=== PATIENT | female | born 1945 | race Caucasian/White ===

== ENCOUNTER 2023-10-24 18:35 | Inpatient (IN) | payer OTHER, SELFPAY ==
[2023-10-24] VITALS (7 sets, daily range): BP systolic 133–225; BP diastolic 63–139; BMI 25.4
[2023-10-24 15:51] LABS: ALT (SGPT) 14 U/L (0-35); AST (SGOT) 28 U/L (14-36); Albumin 4.6 g/dl (3.5-5.0); Alkaline Phosphatase 144 U/L (38-126); Blood Urea Nitrogen 15 mg/dl (7-17); Calcium 9.6 mg/dl (8.4-10.2); Carbon Dioxide 20 mmol/L (22-30); Chloride 91 mmol/L (98-107); Glucose 111 mg/dl (70-99); Potassium 3.9 mmol/L (3.5-5.1); Sodium 123 mmol/L (135-145); Total Bilirubin 1.1 mg/dl (0.2-1.3); Total Protein 7.5 g/dl (6.3-8.2); eGFR > 60.00
[2023-10-24 15:53] LABS: % Basophils 0.3 % (0-2); % Eosinophils 0.4 % (0-6); % Immature Granulocytes 0.5 % (0-0.5); % Lymphocytes 5.2 % (20.5-51.1); % Monocytes 9.5 % (1.7-9.3); % Neutrophils 84.1 % (42.2-75.2); Absolute Basophils 0.1 10^3/uL (0-0.2); Absolute Eosinophils 0.1 10^3/uL (0-0.7); Absolute Immature Granulocytes 0.1 10^3/uL (0-0.05); Absolute Lymphocytes 0.8 10^3/uL (1.2-3.4); Absolute Monocytes 1.4 10^3/uL (0.1-0.6); Absolute Neutrophils 12.4 10^3/uL (1.4-6.5); Hematocrit 32.9 % (37.0-47.0); Hemoglobin 11.8 g/dL (12.0-16.0); Mean Corp Hgb Conc. 35.9 g/dL (33.0-37.0); Mean Corpuscular Volume 94.8 fL (81.0-99.0); Mean Platelet Volume 9.2 fL (7.4-10.4); Nucleated Red Blood Cells % 0 %; Platelet Count 293 10^3/uL (130-400); Red Blood Cell Count 3.47 10^6/uL (4.20-5.40); Red Cell Dist. Width 12.4 % (11.5-14.5); White Blood Cell Count 14.7 10^3/uL (4.8-10.8)
[2023-10-24 16:01] LABS: Troponin I 0.016 ng/ml
--- NOTE | 2023-10-24 16:39 | ED.GENMED ---
History of Present Illness
General
Chief Complaint: Change in Mental Status
Source: patient
Exam Limitations: none
Time Seen by Provider: 10/24/23 16:08
Travel History
Have you had any contact with someone who has COVID-19?: No
Do you have any symptoms of coronavirus? Fever > 100 degrees, chills, cough, shortness of breath, sore throat, loss of taste or smell, muscle aches, or headache?: No
History of Present Illness
History of Present Illness:
77-year-old female with history of hypertension and migraines presents with onset of confusion earlier today. states has been happening intermittently over the past month. She fell about 3 weeks ago as she tripped over her dog. She landed
on her backside. She did not hit her head. She been having trouble ambulating secondary to pain in the buttock. Today she was not making any sense. No reported fever chest pain shortness of breath cough or urinary symptoms. She notes no
excessive thirst. No other complaints at this time
Phy Exam
Physical Exam
Physical Exam:
General: WEll appearing female NAD
HEENT: Normocephalic atraumatic no evidence of trauma pupils equal round reactive to light
Heart: Regular rate and rhythm no murmurs
Lungs: Clear no wheeze or rales
Neurologic: Alert and oriented x 3 no facial asymmetry aphasia slurred or drift.
Abdomen is soft nontender nondistended no guarding or rebound
Musculoskeletal exam: Slightly tender to the left posterior buttock. No deformities to the extremities
Course
Orders/Labs/Results
Orders:
Orders
10/24/23 15:22
Electrocardiogram (*1) Urgent
Reason for Study: Hypertension, Benign
EKG- Treatment ONCE
10/24/23 15:27
CMP [Comprehensive Metabolic Panel] Urgent
Complete Blood Count/With Diff Urgent
Serum Osmolality Urgent
Comment: ADD
Troponin I Urgent
10/24/23 15:[address] [CT Head W/o Iv Contrast] Urgent
Comment:
Reason For Exam: confusion
10/24/23 16:23
Add On- LAB Urgent
Tests Added?: serum osmolality
CR Pelvis - 1 Or 2 Views Urgent
Comment:
Reason For Exam: fall, left posterior pelvic pain
10/24/23 17:13
Osmolality, Random Urine Urgent
Date Specimen was Collected: 10/24/23
Time Specimen was Collected: 17:10
Urinalysis Reflex To Culture Urgent
Date Specimen was Collected: 10/24/23
Time Specimen was Collected: 17:10
Urine Microscopic Reflex Cult Urgent
Urine Sodium Urgent
Date Specimen was Collected: 10/24/23
Time Specimen was Collected: 17:10
Urine Culture Urgent
ANTHONY Source: U
Specimen Description:
Date Specimen was Collected: 10/24/23
Time Specimen was Collected: 17:10
Abnormal Lab Results
10/24/23 10/24/23
15:27 17:13
WBC 14.7 H 10^3/uL
(4.8-10.8)
RBC 3.47 L 10^6/uL
(4.20-5.40)
Hgb 11.8 L g/dL
(12.0-16.0)
Hct 32.9 L %
(37.0-47.0)
MCH 34.0 H pg
(27.0-31.0)
Abs Immat Gran (auto) 0.1 H 10^3/uL
(0-0.05)
Absolute Neuts (auto) 12.4 H 10^3/uL
(1.4-6.5)
Absolute Lymphs (auto) 0.8 L 10^3/uL
(1.2-3.4)
Absolute Monos (auto) 1.4 H 10^3/uL
(0.1-0.6)
Neutrophils % 84.1 H %
(42.2-75.2)
Lymphocytes % 5.2 L %
(20.5-51.1)
Monocytes % 9.5 H %
(1.7-9.3)
Sodium 123 L mmol/L
(135-145)
Chloride 91 L mmol/L
(98-107)
Carbon Dioxide 20 L mmol/L
(22-30)
Glucose 111 H mg/dl
(70-99)
Serum Osmolality 256 L mOsm/kg
(275-300)
Alkaline Phosphatase 144 H U/L
(38-126)
Urine Ketones 3+ A
(Negative)
Ur Occult Blood Reflex Trace A
(Negative)
Leukocyte Esterase Rfl 1+ A
(Negative)
10/24/23 15:27
10/24/23 15:27
Vital Signs
Initial and Last Documented VS:
Initial Vital Signs
Temp Pulse Resp BP Pulse Ox
98.3 F 102 18 225/139 97
10/24/23 15:14 10/24/23 15:14 10/24/23 15:14 10/24/23 15:14 10/24/23 15:14
Last Documented Vital Signs
Temp Pulse Resp BP Pulse Ox
98.3 F 106 18 205/87 98
10/24/23 15:14 10/24/23 17:12 10/24/23 17:12 10/24/23 17:12 10/24/23 17:12
MDM/Problems Addressed
Differential Diagnosis Includes:
Confusion and weakness. Consider TIA versus CVA versus trauma related versus electrolyte abnormality or infectious source
CT head pending. Will check labs. Urinalysis pending.
*Critical Care Note
Total Time (30-74mins, 75-104mins- exclusive of procedures): Not Applicable
Update Note
Update Note:
CT of the head was negative. X-ray of the pelvis shows inferior pubic rami fracture as well as an acetabular fracture. This is from an injury she sustained 3 to 4 weeks ago.. She is hyponatremic with a sodium of 123. Osmolality in the urine and
sodium pending. Discussed findings with hospitalist as well as nephrology. Will admit to hospital
ED Attending Note
-
Portions of this chart may have been created with voice recognition software.� Occasional wrong word or��sound alike� substitutions may have occurred due to the inherent limitations of voice recognition software.
Discharge Plan
Departure
Patient Disposition: Admit
Date of Disposition: 10/24/23
Time of Disposition: 17:34
Admit to: Telemetry
Presentation/result/management discussed w/ accepting MD/DO: Hospitalist
Discharge Problem:
Acute hyponatremia, Fracture of inferior pubic ramus
Discharge Date and Time
Print Language: MONGOLIAN
[2023-10-24 17:10] LABS: Osmolality Serum 256 mOsm/kg (275-300)
[2023-10-24 17:25] LABS: Urine Albumin Negative (Neg - Trace); Urine Bilirubin Negative (Negative); Urine Character Clear (Clear); Urine Color Yellow; Urine Glucose Negative (Negative); Urine Ketone 3+ (Negative); Urine Leukocyte 1+ (Negative); Urine Nitrite Negative (Negative); Urine Occult Blood Trace (Negative); Urine Specific Gravity 1.015 (<1.030); Urine Urobilinogen Negative (Neg - 1+)
[2023-10-24 17:28] LABS: Osmolality Urine 321 mOsm/kg (300-900)
[2023-10-24 17:39] LABS: Urine Red Blood Cell 0-2 /HPF (0-2)
[2023-10-24 17:48] LABS: Urine Sodium 81 mmol/L (30-90)
--- NOTE | 2023-10-24 17:49 | HPS.HSE ---
Family Physician
-
Family Physician: Sara Haney
Chief Complaint
-
Confusion for few hours
History of Present Illness
77 years old female came from home. History taken from the patient and her family at bedside. Patient reported that she was brought into the hospital because of her 's request. was at the gym this morning and when he came back he
felt patient was confused, did not recognize the time or mobile/TV remote. She did not have fever or chills. He felt that she looked confused to him and brought her to the emergency room.
Currently, feels patient is back to her baseline. Patient denies any shortness of breath or headache. Patient reports that she did not recall that episode of confusion. In the emergency room, her white count was 14.7.
Blood pressure on arrival 225/139. Currently in the room her blood pressure 189/91. No treatment was given in the ER. Patient reported uncontrolled blood pressure at home. Patient reported that she was taking
Ibuprofen for recent left inferior pubic ramus fracture around 3 weeks ago.
Medical History
Past Medical History
Past Medical History: Reports Other (Hypertension)
Past Surgical History: Reports Other (No recent major surgery)
Social History
Tobacco: Non-smoker
Alcohol: Daily (Glass of wine)
Drug: None
Personal:
Living: With Family
Employment: Retired
Family History
Family History: Not pertinent
Allergies / Home Medications
Allergies reflects when Allergies were last updated in [employer].
Home Medications with original date entered in [employer]
Allergy/Medication List:
Allergies
Allergy/AdvReac Type Severity Reaction Status Date / Time
No Known Allergies Allergy Unverified 10/24/23 15:21
Home Medications
ibuprofen 200 mg tablet 800 - 1,200 mg PO TID PRN mild pain 10/24/23
metoprolol succinate 100 mg tablet,extended release 24 hr 100 mg PO QPM 10/24/23
Review of Systems
-
History Source: Patient
A 12 point ROS was completed and negative except as noted: Yes
Constitutional: Denies Fever or Chills
EENT: Denies Sore Throat
Respiratory: Denies Cough or Trouble Breathing
Cardiac: Denies Chest Pain or Palpitations
Abdomen/GI: Denies Abdominal Pain
: Denies Dysuria
Musculoskeletal: Reports Joint Pain (Left pelvic pain)
Skin: Denies Itching
Neurological: Denies Numbness
Endocrine: Denies Temp Intolerance
Hematologic/Lymphatic: Denies Bruising
Psych: Denies Panic Disorder
Physical Exam
Vital Signs
Vital Signs
Temp Pulse Resp BP Pulse Ox
98.3 F 106 18 205/87 98
10/24/23 15:14 10/24/23 17:12 10/24/23 17:12 10/24/23 17:12 10/24/23 17:12
Physical Exam
General: No Apparent Distress and Comfortable
HEENT: Moist mucous membranes and Atraumatic
Respiratory: Clear
Cardiac: S1/S2, Tachycardia and Murmur
GI: Soft, Non Tender and Non Distended
Rectal: No Maroon Stools
Genito-urinary: No costovertebral tender
Musculoskeletal: No Clubbing, No Cyanosis and No Edema
Skin: Warm and Dry; No Jaundice
Neuro: AO x 3 and Nonfocal/grossly intact; No Slurred Speech, Facial Droop or Tremors
Psych: Calm and Intact Judgment/Insight
Laboratory Results
-
10/24/23 15:27
10/24/23 15:27
Laboratory Results
Total Bilirubin 1.1 mg/dl (0.2-1.3) 10/24/23 15:27
AST 28 U/L (14-36) 10/24/23 15:27
ALT 14 U/L (0-35) 10/24/23 15:27
Alkaline Phosphatase 144 U/L (38-126) H 10/24/23 15:27
Troponin I 0.016 ng/ml 10/24/23 15:27
Impression/Plan
-
IMPRESSION:
77 years old female who presented with history of confusion that happened earlier today. Patient was back to her baseline upon arrival to the emergency room.
#Change in mental status
Differential diagnoses include TIA/hypertensive encephalopathy/metabolic encephalopathy
Admit the patient to the hospital.
Monitor the patient telemetry
Correct sodium slowly
Control blood pressure
CAT scan of the head did not show acute finding
Nonfocal on neurologic examination, and she seems back to baseline. Discussed option to do MRI brain to rule out stroke but she declined
Neurochecks
PT/OT
# Hyponatremia. Admission sodium 123
No history of hyponatremia
Could be pain induced with excess ADH
Check serum and urine osmolality. Check urine sodium.
Continue with regular diet with fluid restriction
Monitor sodium
Appreciate nephrology input
# Hypertensive urgency
History of primary hypertension and reportedly not well-controlled at home
We will give the patient started IV hydralazine
Continue with oral Toprol
Will start the patient on low-dose nifedipine and monitor blood pressure
# Heart murmur
Will check echocardiogram. Patient is aware of it but has not had echocardiogram done
No history of coronary artery disease or cardiac arrhythmias
No chest pain
Monitor the patient on telemetry
# Leukocytosis. Could be reactive. No fever. No cough.
No GI symptoms
Check urine test
Monitor temperature curve
# Recent left pubic rami fracture.
Pain control with Tylenol [id number].
PT/OT
Total time spent to see the patient, examine the patient, review data and lab results, discuss treatment plan with patient, nursing staff, ER doctor around 75 minutes
[2023-10-24] MEDS: TOPROL XL PO (19:25)
[2023-10-24] MEDS: APRESOLINE IV (19:25)
--- NOTE | 2023-10-24 19:40 | PTCARENOTE ---
Patient arrived from ED via stretcher, ambulated to bed with standby assist. Alert and oriented at this time, appears to be forgetful. Patient initiated on customer support specialist #2. Bed alarm placed and maintained. Patient ambulated to bathroom with
assist of one person, stating 'I am so nervous, I can't stop going to the bathroom.' Call webb is within reach, patient verbalizes understanding on use of call webb. Will continue to monitor.
[2023-10-24] MEDS: HEPARIN 5000 UNITS SC (20:12)
[2023-10-24] MEDS: TYLENOL 1000 MG PO (20:12)
[2023-10-24] MEDS: TOPROL XL 100 MG PO (20:12)
[2023-10-24] MEDS: APRESOLINE 10 MG IV (20:13)
[2023-10-24] MEDS: FLUSH (NSS) 2 FLUSH IV (20:14)
[2023-10-24 21:34] LABS: Uric Acid 2.4 mg/dl (2.5-6.2)
[2023-10-24] MEDS: LASIX 20 MG PO (22:28)
[2023-10-25] VITALS (8 sets, daily range): BP systolic 137–157; BP diastolic 71–85; PULSE 80–81; O2SAT 95
[2023-10-25 08:17] LABS: Blood Urea Nitrogen 14 mg/dl (7-17); Calcium 8.9 mg/dl (8.4-10.2); Carbon Dioxide 25 mmol/L (22-30); Chloride 93 mmol/L (98-107); Estimated Creatinine Clearance 44 ml/min; Glucose 94 mg/dl (70-99); Potassium 3.6 mmol/L (3.5-5.1); Sodium 122 mmol/L (135-145); eGFR > 60.00
[2023-10-25] MEDS: PROCARDIA XL (EXTENDED RELEASE) 30 MG PO ×2 (08:25→20:10)
[2023-10-25] MEDS: TYLENOL 1000 MG PO ×3 (08:26→22:19)
[2023-10-25] MEDS: HEPARIN 5000 UNITS SC ×2 (08:26→20:10)
[2023-10-25] MEDS: TOPROL XL 100 MG PO (08:26)
--- NOTE | 2023-10-25 09:56 | W.PN.HOSP.TC ---
Today's Communication/Plan
-
likely dc in am
Assessment / Plan
Assessment / Plan
Physical Exam
General: No Apparent Distress and Comfortable
HEENT: Moist mucous membranes and Atraumatic
Respiratory: Clear
Cardiac: S1/S2, Tachycardia and Murmur
GI: Soft, Non Tender and Non Distended
Rectal: No Maroon Stools
Genito-urinary: No costovertebral tender
Musculoskeletal: No Clubbing, No Cyanosis and No Edema
Skin: Warm and Dry; No Jaundice
Neuro: AO x 3 and Nonfocal/grossly intact; No Slurred Speech, Facial Droop or Tremors
Psych: Calm and Intact Judgment/Insight
77 years old female who presented with history of confusion that happened earlier today. Patient was back to her baseline upon arrival to the emergency room.
#Change in mental status
Im leaning towards HTN encephalopathy due to good cognitive improvement by controlling her BP. I can not rule out stroke as she declined MRI but having no residual deficits and getting back to baseline ( even per family) make stroke less likely.
Also metabolic encephalopathy less likely due to persistent hyponatremia but good cognitive improvement.
No cardiac arrhythmias on telemetry
Order PT/OT
CAT scan of the head did not show acute finding
c/w aspirin as secondary prevention. Check Lipid panel in am.
# Hyponatremia. Admission sodium 123
No history of hyponatremia
Likely pain induced with excess ADH
Low serum and normal urine osmolality. Urine sodium at 81.
Continue with regular diet with fluid restriction, add sodium chloride tablets.
Monitor sodium
d/w Dr Alamo, low dose Lasix did not help much, will do small amount of 3% NS.
Appreciate nephrology input
# Hypertensive urgency, resolved.
History of primary hypertension and reportedly not well-controlled at home
PRN IV hydralazine caused palpitation.
Continue with oral Toprol, add low dose Nifedipine.
Monitor blood pressure
# Heart murmur
Will check echocardiogram. Patient is aware of it but has not had echocardiogram done
No history of coronary artery disease or cardiac arrhythmias
No chest pain
Monitor the patient on telemetry
# Leukocytosis. Could be reactive. No fever. No cough.
No GI symptoms
urine test is clear , positive leukocyte Estrace. Urine culture is pending
Monitor temperature curve
# Recent left pubic rami fracture.
Pain control with Tylenol [id number].
PT/OT
Total time spent to see the patient, examine the patient, review data and lab results, discuss treatment plan with patient, her family, nursing staff, supervisor costuming around 67 minutes
Anticipated Discharge: 24 - 48 hours
Subjective/Interval History
-
Date of Service: October 25, 2023
She feels better today, no complaints
slept well last night
Night team: no events
Objective Data
-
Labs:
Laboratory Results
10/25/23
07:04
Sodium 122 L
Potassium 3.6
Chloride 93 L
Carbon Dioxide 25
BUN 14
Creatinine 0.7
Glucose 94
Calcium 8.9
Vital Signs:
Vital Signs
Temp Pulse Resp BP Pulse Ox
99.4 F 77 16 147/79 95
10/25/23 08:00 10/25/23 08:26 10/25/23 08:00 10/25/23 08:26 10/25/23 08:00
I&O
10/24/23 10/25/23 10/26/23
06:59 06:59 06:59
Intake Total 240 / 240
Balance 240 / 240
--- NOTE | 2023-10-25 10:38 | W.CON.NEPH ---
Consultation
-
Date/Time Consultation Requested: 10/24/23 192
Date/Time Consultation Performed: 10/25/23 1100
Requesting Provider: Cricket Hammond
Performing Provider: Estella Hampton
Reason for Consultation: Hyponatremia
Medical History
-
Chief Complaint: AMS
History of Present Illness:
77 years old female with H/o HTN on BB, baseline white coat HTN, who fell around Easter time at daughters house while taking care of dogs and since then has back pain and was taking Advil regularly. She was still able to walk and did not seek
medical attention. Yesterday brought her into the hospital because of AMS. Reportedly she was confused, did not recognize the time or mobile/TV remote. No reported fever, cough, dysuria. Offers no cp or sob or n/v. No diarrhea. MS improved
in ER and sodium noted at 123. NO prior h/o hyponatremia. She reports was eating well. No excess free water intake. She denies any dizziness. Blood pressure on arrival 225/139, pt reports very anxious last night. Sfter she got her BB BP improved.
She also received low dose of lasix but sodium remains low at 122. Her pelvic X ray shows pelvic bone fracture.
Past Medical History
HTN
Vit D def
HLD
Past Surgical History: None
Social History
Tobacco: Non-Smoker
Alcohol: Daily (glass of wine few times weekly)
Personal:
Living: With Family
Family History
Father dies at 73 from fall
MOther dies at 73 with lung ca
Brother with [place]
Allergies / Home Medications
Allergy/AdvReac Type Severity Reaction Status Date / Time
No Known Allergies Allergy Unverified 10/24/23 15:21
�Medication �Instructions �Recorded �Confirmed �Type
ibuprofen 200 mg tablet 800 - 1,200 mg PO TID PRN mild pain 10/24/23 10/24/23 History
metoprolol succinate 100 mg 100 mg PO QPM 04/29/24 04/29/24 History
tablet,extended release 24 hr
Review of Systems
-
All complete 12 point ROS haven been inquired and found negative other than stated in HPI
Physical Exam
Vital Signs
Vital Signs
Temp Pulse Resp BP Pulse Ox
99.4 F 77 16 147/79 95
10/25/23 08:00 10/25/23 08:26 10/25/23 08:00 10/25/23 08:26 10/25/23 08:00
Lab Results
WBC 14.7 10^3/uL (4.8-10.8) H 10/24/23 15:27
RBC 3.47 10^6/uL (4.20-5.40) L 10/24/23 15:27
Hgb 11.8 g/dL (12.0-16.0) L 10/24/23 15:27
Hct 32.9 % (37.0-47.0) L 10/24/23 15:27
Plt Count 293 10^3/uL (130-400) 10/24/23 15:27
Sodium 122 mmol/L (135-145) L 10/25/23 07:04
Potassium 3.6 mmol/L (3.5-5.1) 10/25/23 07:04
Chloride 93 mmol/L (98-107) L 10/25/23 07:04
Carbon Dioxide 25 mmol/L (22-30) 10/25/23 07:04
BUN 14 mg/dl (7-17) 10/25/23 07:04
Creatinine 0.7 mg/dL (0.6-1.0) 10/25/23 07:04
eGFR > 60.00 10/25/23 07:04
Glucose 94 mg/dl (70-99) 10/25/23 07:04
Calcium 8.9 mg/dl (8.4-10.2) 10/25/23 07:04
Albumin 4.6 g/dl (3.5-5.0) 10/24/23 15:27
U osmo 321, U na 81
UA ketones 3+,occt bld trace, lecu 1+, WBC 6-10
pelvic Xray:
FINDINGS/IMPRESSION:
Fracture of the left inferior pubic ramus without significant displacement. Possible subtle nondisplaced fractures of the medial left acetabular wall and left sacral ala, although less well seen by radiograph.
No dislocation. Chronic degenerative changes of the lower lumbar spine.
CT head:
IMPRESSION:
No acute intracranial abnormality. Chronic senescent changes.
Physical Exam
General: Awake, Alert, Oriented, AOx3, No Distress and Nontoxic
HEENT: EOMI, Anicteric and No JVD
Respiratory: Clear, Normal Excursion and Nonlabored Respirations
Cardiac: S1/S2 and Regular Rate/Rhythm
Abdomen: Soft, Nontender and Nondistended
Musculoskeletal: No Cyanosis and Edema (trace)
Skin: No Rash
Neuro: Nonfocal/Grossly Intact
Psych: Mood/afflect pleasant, Insight/judgement good and Appropriate
Data Reviewed
-
Radiology: Report Reviewed by me and Discussed with Patient
Labs: Labs Reviewed by me and Discussed with Patient
Assessment/Plan
-
IMP:
Change in mental status
Hyponatremia
Hypertensive urgency
History of primary hypertension along with white coat HTN
Heart murmur
Leukocytosis
Recent left pubic rami fracture
PLan:
A/w AMS, na found at 123
U osmo high at 321 with high ADH state likely from pain(pelvic fx)+NSAIDs use
Since she had HTN Urgency 3% saline not ordered last night and instead received lasix
check TSH, q4h check sodiums, FR 40 ounces/day
will start 3% saline now as her BP improved
try samsca tomorrow if needed
high BP could be from severe anxiety- now better with BB and procardia
may benefit from lasix at d/c, mild edema check BNP
d/w pt and and primary
[2023-10-25] MEDS: SODIUM CHLORIDE 3% 250 IV (11:34)
[2023-10-25 11:46] LABS: Sodium 124 mmol/L (135-145)
[2023-10-25 14:08] LABS: NT-proBNP 2830 pg/ml
[2023-10-25 15:43] LABS: Sodium 127 mmol/L (135-145)
[2023-10-25 19:16] LABS: Sodium 128 mmol/L (135-145)
[2023-10-25 23:40] LABS: Sodium 127 mmol/L (135-145)
[2023-10-26 03:50] VITALS: BP 157/78
[2023-10-26 06:11] VITALS: BMI 24.8
[2023-10-26 07:13] LABS: Blood Urea Nitrogen 11 mg/dl (7-17); Calcium 9.2 mg/dl (8.4-10.2); Carbon Dioxide 27 mmol/L (22-30); Chloride 98 mmol/L (98-107); Estimated Creatinine Clearance 50 ml/min; Glucose 92 mg/dl (70-99); HDL Cholesterol 86 mg/dl; LDL Cholesterol, Calculated 89 mg/dl; Potassium 3.4 mmol/L (3.5-5.1); Sodium 130 mmol/L (135-145); Total Cholesterol 196 mg/dl (50-199); Triglyceride 107 mg/dl (10-149); Very Low Density Lipoprotein 21 mg/dl (0-30); eGFR > 60.00
[2023-10-26 07:30] VITALS: BP 152/86
[2023-10-26 07:36] LABS: Hemoglobin 11.2 g/dL (12.0-16.0); Mean Corpuscular Volume 97.3 fL (81.0-99.0); Mean Platelet Volume 9.3 fL (7.4-10.4); Platelet Count 301 10^3/uL (130-400); Red Blood Cell Count 3.29 10^6/uL (4.20-5.40); Red Cell Dist. Width 12.9 % (11.5-14.5); White Blood Cell Count 7.8 10^3/uL (4.8-10.8)
[2023-10-26] MEDS: TYLENOL 1000 MG PO ×3 (07:59→21:09)
[2023-10-26] MEDS: TOPROL XL 100 MG PO (07:59)
[2023-10-26] MEDS: HEPARIN 5000 UNITS SC ×2 (07:59→20:01)
[2023-10-26] MEDS: PROCARDIA XL (EXTENDED RELEASE) 30 MG PO ×2 (08:00→20:01)
--- NOTE | 2023-10-26 08:21 | W.PN.HOSP.TC ---
Addendum entered and electronically signed by Cricket Colby MD 10/26/23 11:37:
Addendum
Dr Ac saw pt later this morning and wanted her to stay another night to continue monitoring sodium level
will cancel dc
Total time spent to see the patient, examine the patient, review data and lab results, discuss treatment plan with patient, nephrology, nursing staff around 75 minutes
Original Note:
Today's Communication/Plan
-
DC
Assessment / Plan
Assessment / Plan
Physical Exam
General: No Apparent Distress and Comfortable
HEENT: Moist mucous membranes and Atraumatic
Respiratory: Clear
Cardiac: S1/S2, Tachycardia and Murmur
GI: Soft, Non Tender and Non Distended
Rectal: No Maroon Stools
Genito-urinary: No costovertebral tender
Musculoskeletal: No Clubbing, No Cyanosis and No Edema
Skin: Warm and Dry; No Jaundice
Neuro: AO x 3 and Nonfocal/grossly intact; No Slurred Speech, Facial Droop or Tremors
Psych: Calm and Intact Judgment/Insight
77 years old female who presented with history of confusion that happened earlier today. Patient was back to her baseline upon arrival to the emergency room.
#Change in mental status
Im leaning towards HTN encephalopathy due to good cognitive improvement by controlling her BP. I can not rule out stroke as she declined MRI but having no residual deficits and getting back to baseline ( even per family) make stroke less likely.
Also metabolic encephalopathy less likely due to persistent hyponatremia but good cognitive improvement.
No cardiac arrhythmias on telemetry
Order PT/OT, recommended outpatient PT
CAT scan of the head did not show acute finding
c/w aspirin as secondary prevention. Checked Lipid panel this morning that showed LDL 89. Triglyceride 107, total cholesterol 196.
Patient will follow-up with her primary care doctor
# Hyponatremia. SAIDH
Admission sodium 123. Sodium 1 slowly up to 130
Likely ADH excess in setting of pain issues
No history of hyponatremia
BMP as an outpatient
Low serum and normal urine osmolality. Urine sodium at 81.
Continue with regular diet with fluid restriction, status post small amount of 3% NS.
Appreciate nephrology input
Hypokalemia, replace
#
# Hypertensive urgency, resolved.
History of primary hypertension and reportedly not well-controlled at home
PRN IV hydralazine caused palpitation.
Continue with oral Toprol, started on nifedipine. Patient seems to tolerate her new regimen well
Monitor blood pressure
# Heart murmur echocardiogram showed left ventricular ejection fraction of 70 to 75%. Stage II diastolic dysfunction. Moderate mitral regurgitation. Mild aortic stenosis. Mild pulmonary hypertension.
No history of coronary artery disease or cardiac arrhythmias
No chest pain
No hypoxia or shortness of breath
For outpatient cardiology follow-up
# Leukocytosis. Could be reactive. No fever. No cough.
Resolved. No GI symptoms
urine test is clear , positive leukocyte Estrace. Urine culture is negative
Monitor temperature curve
# Recent subacute left pubic rami fracture.
Pain control with Tylenol [id number].
PT/OT, outpatient PT
Total discharge time spent to see the patient, examine the patient, review data and lab results, discuss discharge plan with patient, her family, nursing staff, javascript ui developer around 67 minutes
Anticipated Discharge: Today
Subjective/Interval History
-
Date of Service: October 26, 2023
Objective Data
-
Labs:
Laboratory Results
10/25/23 10/26/23
23:00 06:34
WBC 7.8
Hgb 11.2 L
Hct 32.0 L
Plt Count 301
Sodium 127 L 130 L
Potassium 3.4 L
Chloride 98
Carbon Dioxide 27
BUN 11
Creatinine 0.5 L
Glucose 92
Calcium 9.2
Vital Signs:
Vital Signs
Temp Pulse Resp BP Pulse Ox
98.0 F 90 18 152/86 97
10/26/23 07:30 10/26/23 08:00 10/26/23 07:30 10/26/23 08:00 10/26/23 07:30
I&O
10/25/23 10/26/23 10/27/23
06:59 06:59 06:59
Intake Total 240 / 240 720 / 720
Balance 240 / 240 720 / 720
--- NOTE | 2023-10-26 10:07 | PN.CDI ---
CDI
- -
CDI:
Physician Documentation Request
Admit Date: 10/24/23 18:35
Dear Doctor Earnestine,
Clinical Indicators:
Patient admitted with change in mental status.
10/24 PN, 'Hyponatremia...Likely pain induced with excess ADH'
Serum osmo/urine studies:
10/24/23 10/24/23
15:27 17:13
Serum Osmolality 256 L
Urine Osmolality 321
Urine Sodium 81
Please clarify in the progress notes, the likely diagnosis that supports the above abnormalities and additional evaluation, monitoring and/or treatment rendered:
SIADH
Hyponatremia only
Other, please specify
Use of terms such as suspected, likely, concern for, or probable (associated with a specific diagnosis that is being evaluated, monitored, or treated as if it exists) are acceptable and can be coded in the inpatient setting, when documented at the
time of discharge.
Thank you,
Ginette Chery RN BSN
CDI Specialist
available via tiger text
Please use your independent medical judgment in providing your response.
--- NOTE | 2023-10-26 10:14 | PN.CDI ---
CDI
- -
CDI:
Physician Documentation Request
Admit Date: 10/24/23 18:35
Dear Doctor Earnestine,
Clinical Indicators:
Patient admitted with change in mental status.
10/23 H & P, 'Ibuprofen for recent left inferior pubic ramus fracture around 3 weeks ago.'
10/23 Pelvic X Ray report: 'Fracture of the left inferior pubic ramus without significant displacement'
Please clarify which of the following accurately represents the acuity of the left pubic rami fracture.. Possible options might include:
Subacute
Acute
Chronic
Other, please specify
Use of terms such as suspected, likely, concern for, or probable (associated with a specific diagnosis that is being evaluated, monitored, or treated as if it exists) are acceptable and can be coded in the inpatient setting, when documented at the
time of discharge.
Thank you,
Ginette Chery RN BSN
CDI Specialist
available via tiger text
Please use your independent medical judgment in providing your response.
--- NOTE | 2023-10-26 11:18 | W.PN.NEPH.PH ---
Today's Communication / Plan
-
Follow BMP
Maintain fluid restriction
Replete potassium
Assessment/Plan
-
IMP:
Change in mental status
Hyponatremia
Hypertensive urgency
History of primary hypertension along with white coat HTN
Heart murmur
Leukocytosis
Recent left pubic rami fracture
PLan:
A/w AMS, na found at 123, now up to 130 follow 3% saline given
maintain FR
U osmo high at 321 with high ADH state likely from pain(pelvic fx)+NSAIDs use
checked TSH, q4h check sodiums, FR 40 ounces/day
will start 3% saline now as her BP improved
try samsca tomorrow if needed
high BP could be from severe anxiety- now better with BB and procardia
may benefit from lasix at d/c, mild edema check BNP
d/w pt and and primary
-
-
Date of Service: October 26, 2023
CC / HPI / ROS
-
Chief Complaint:
Hyponatremia
History of Present Illness:
Sodium up to 130 following 3% saline administration
Hemodynamically stable
Hypokalemia noted
Review of Systems:
Nonoliguric
Labs
-
Labs:
WBC 7.8 10^3/uL (4.8-10.8) 10/26/23 06:34
RBC 3.29 10^6/uL (4.20-5.40) L 10/26/23 06:34
Hgb 11.2 g/dL (12.0-16.0) L 10/26/23 06:34
Hct 32.0 % (37.0-47.0) L 10/26/23 06:34
Plt Count 301 10^3/uL (130-400) 05/01/24 06:34
Sodium 130 mmol/L (135-145) L 10/26/23 06:34
Potassium 3.4 mmol/L (3.5-5.1) L 10/26/23 06:34
Chloride 98 mmol/L (98-107) 10/26/23 06:34
Carbon Dioxide 27 mmol/L (22-30) 10/26/23 06:34
BUN 11 mg/dl (7-17) 10/26/23 06:34
Creatinine 0.5 mg/dL (0.6-1.0) L 10/26/23 06:34
eGFR > 60.00 10/26/23 06:34
Glucose 92 mg/dl (70-99) 10/26/23 06:34
Calcium 9.2 mg/dl (8.4-10.2) 10/26/23 06:34
Spm-J-Boxibiakqvb Pept 2830 pg/ml 10/25/23 07:04
Albumin 4.6 g/dl (3.5-5.0) 10/24/23 15:27
Physical Exam
-
Vital Signs:
Vital Signs
Temp Pulse Resp BP Pulse Ox
98.0 F 90 18 152/86 97
10/26/23 07:30 10/26/23 08:00 10/26/23 07:30 10/26/23 08:00 10/26/23 07:30
Cardiovascular:: Regular rate and rhythm
Lung Excursion:: Normal
Abdomen:: Nontender and Soft
Bowel Sounds:: Normal
Extremity Edema:: None: Bilateral:
[2023-10-26 11:21] VITALS: BP 176/92
[2023-10-26] MEDS: APRESOLINE 5 MG IV (11:21)
[2023-10-26] MEDS: KCL 40 MEQ PO (11:21)
[2023-10-26 15:30] VITALS: BP 165/89
[2023-10-26 16:03] VITALS: BP 167/91; PULSE 91; O2SAT 96
--- NOTE | 2023-10-26 16:16 | CM ---
Reviewed chart, met with patient to obtain information for assessment. Patient stated that she lives with her spouse in a two story home with one step to enter. She described herself as independent with her bathing, dressing, ADLs and ambulates
without device.
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
She has never had VN
She has never been to a SNF.
She has a cane and a walker at home that she does not use.
She drives and can get to her own appointments and do her own laundry.
Patient has a prescription plan and uses [facility] on [address].
Patient's PCP is Dr. Sara Haney
Plan: Case management will continue to follow and assist with discharge planning. Patient would like to return home with spouse when medically cleared.
[2023-10-26 23:00] VITALS: BP 146/81
--- NOTE | 2023-10-27 00:36 | PTCARENOTE ---
pt increasingly more confused throughout the shift. at the beginning of shift, pt able to answer orientation questions correctly although forgetful. Pt now unable to state where she is, setting bed alarm off, easily re-directable though. Will
closely monitor
--- NOTE | 2023-10-27 01:57 | PTCARENOTE ---
pt moved to room 337-2 and placed on video monitoring observation for safety. bed alarm remains active
[2023-10-27 06:37] VITALS: BMI 24.5
[2023-10-27 07:49] VITALS: BP 173/115
[2023-10-27 07:56] LABS: Blood Urea Nitrogen 12 mg/dl (7-17); Calcium 9.8 mg/dl (8.4-10.2); Carbon Dioxide 23 mmol/L (22-30); Chloride 95 mmol/L (98-107); Estimated Creatinine Clearance 50 ml/min; Glucose 98 mg/dl (70-99); Potassium 3.5 mmol/L (3.5-5.1); Sodium 130 mmol/L (135-145); eGFR > 60.00
[2023-10-27] MEDS: TYLENOL 1000 MG PO (08:27)
[2023-10-27] MEDS: TOPROL XL 100 MG PO (08:28)
[2023-10-27] MEDS: HEPARIN 5000 UNITS SC (08:28)
[2023-10-27 09:39] VITALS: BP 160/72
[2023-10-27] MEDS: PROCARDIA XL (EXTENDED RELEASE) 60 MG PO (09:51)
[2023-10-27] MEDS: PROCARDIA XL (EXTENDED RELEASE) PO (09:51)
--- NOTE | 2023-10-27 10:25 | W.DCSUMMARY ---
Discharge Summary
Discharge Data
Date of Admission: 10/24/23
Date of Discharge: 10/27/23
-
Pending Results: No
Hospital Course
77 years old female was admitted for an episode of change of mental status that happened at home. Family reported infrequent episodes of confusion at home. Patient was found to have high blood pressure on admission with hyponatremia. Patient was
diagnosed with hypertensive urgency. No history of hyponatremia in the past. Patient had recent left pubic ramus fracture and she was taking extra doses of nonsteroidal anti-inflammatory drugs. Patient was diagnosed with hyponatremia secondary to
increased production of antidiuretic hormone likely from pain and nonsteroidal anti-inflammatory drug use. Patient was started on fluid restriction. She was seen by field research associate and was given hypertonic saline. Her sodium improved gradually from
123 to 130 upon discharge. Normal renal function. Patient was noted to have high blood pressure. Family reported uncontrolled blood pressure at home. She was started on new medication called nifedipine. Her blood pressure became better
controlled. She was noticed to have heart murmur and echocardiogram showed left ventricular ejection fraction of 70- 75%, stage II diastolic dysfunction, moderate mitral regurgitation, mild aortic stenosis, mild pulmonary hypertension. Mentation
improved and went back to baseline. She was noted to have mild cognitive impairment. Scan of the head did not show acute findings. Patient declined to have magnetic resonance imaging of the brain. She did not have neurological deficits.
Possibility of hypertensive encephalopathy could not be ruled out. Patient was given Tylenol for pelvic pain and she did well. Patient remained hemodynamically stable and was discharged in a stable condition. Physical therapy recommended
outpatient physical therapy. Patient was given a prescription to do blood work within a week after discharge and to follow-up with her primary care doctor. Discharge instructions and recommendations were discussed with the family.
Physical Exam
General: No Apparent Distress and Comfortable
HEENT: Moist mucous membranes and Atraumatic
Respiratory: Clear
Cardiac: S1/S2, Tachycardia and Murmur
GI: Soft, Non Tender and Non Distended
Rectal: No Maroon Stools
Genito-urinary: No costovertebral tender
Musculoskeletal: No Clubbing, No Cyanosis and No Edema
Skin: Warm and Dry; No Jaundice
Neuro: AO to self and surroundings, and Nonfocal/grossly intact; No Slurred Speech, Facial Droop or Tremors
Psych: Calm, no agitation.
Total discharge time spent to see the patient, examine the patient, review data and lab results, discuss discharge plan with patient, family, nursing staff around 65 minutes
Discharge Plan
-
Patient Disposition: Home (Routine Discharge)
Discharge Diagnosis/Procedures: Change in mental status, suspect hypertensive encephalopathy
Hyponatremia, continue fluid restriction.
Hypokalemia
Mitral regurgitation
Diastolic heart dysfunction
Subacute left pubic ramus fracture. Use Tylenol for pain
Diet: Regular
Additional Diets: 52 ounce fluid restriction
Activity: As tolerated and With Walker
Blood Work: BMP in one week if possible
Referrals:
Sara Haney MD [Family Provider] - in one to two weeks
Prescriptions:
New
nifedipine 60 mg tablet extended release
60 mg PO DAILY Qty: 30 0RF
aspirin 81 mg tablet,chewable
81 mg PO DAILY Qty: 30 0RF
Continued
metoprolol succinate 100 mg Tablet Extended Release 24 Hr
100 mg PO QPM
Discontinued
ibuprofen 200 mg Tablet
800 - 1,200 mg PO TID PRN (Reason: mild pain)
Discharge Orders:
Discharge Patient (As Directed); Ordered 10/27/23
Ordered By: Cricket Colby
Discharge Date and Time
Discharge Date/Time: 10/27/23 11:55
Print Language: SWEDISH
--- NOTE | 2023-10-27 10:38 | W.PN.NEPH.PH ---
Today's Communication / Plan
-
Stable for discharge on 52 ounce fluid restriction
Assessment/Plan
-
IMP:
Change in mental status
Hyponatremia
Hypertensive urgency
History of primary hypertension along with white coat HTN
Heart murmur
Leukocytosis
Recent left pubic rami fracture
PLan:
A/w AMS, na found at 123, now up to 130 follow 3% saline given
maintain FR at 52oz daily at discharge
Follow-up BMP early next week with PCP
U osmo high at 321 with high ADH state likely from pain(pelvic fx)+NSAIDs use
-
-
Date of Service: October 27, 2023
CC / HPI / ROS
-
Chief Complaint:
Hyponatremia
History of Present Illness:
Sodium up to 130 following 3% saline administration
Hemodynamically stable
Review of Systems:
Nonoliguric
Labs
-
Labs:
WBC 7.8 10^3/uL (4.8-10.8) 10/26/23 06:34
RBC 3.29 10^6/uL (4.20-5.40) L 10/26/23 06:34
Hgb 11.2 g/dL (12.0-16.0) L 10/26/23 06:34
Hct 32.0 % (37.0-47.0) L 10/26/23 06:34
Plt Count 301 10^3/uL (130-400) 10/26/23 06:34
Sodium 130 mmol/L (135-145) L 10/27/23 07:02
Potassium 3.5 mmol/L (3.5-5.1) 10/27/23 07:02
Chloride 95 mmol/L (98-107) L 10/27/23 07:02
Carbon Dioxide 23 mmol/L (22-30) 10/27/23 07:02
BUN 12 mg/dl (7-17) 10/27/23 07:02
Creatinine 0.5 mg/dL (0.6-1.0) L 10/27/23 07:02
eGFR > 60.00 10/27/23 07:02
Glucose 98 mg/dl (70-99) 10/27/23 07:02
Calcium 9.8 mg/dl (8.4-10.2) 10/27/23 07:02
Cks-P-Wyfsspxnmmz Pept 2830 pg/ml 10/25/23 07:04
Albumin 4.6 g/dl (3.5-5.0) 10/24/23 15:27
Physical Exam
-
Vital Signs:
Vital Signs
Temp Pulse Resp BP Pulse Ox
98.3 F 92 16 160/72 95
10/27/23 07:49 10/27/23 09:39 10/27/23 07:49 10/27/23 09:39 10/27/23 07:49
Cardiovascular:: Regular rate and rhythm
Respiratory:: Bilateral: CTA
Lung Excursion:: Normal
Abdomen:: Nontender and Soft
Bowel Sounds:: Normal
Extremity Edema:: None: Bilateral:
[2023-10-27 11:24] VITALS: BP 127/70
--- NOTE | 2023-10-27 11:41 | PTCARENOTE ---
Reviewed patients d/c medications with patient and pt . Also reviewed all other d/c instructions with them.
--- NOTE | 2023-10-27 12:54 | CM ---
Patient left the hospital before pillowcase cutter could see her to confirm discharge plan
--- NOTE | 2023-10-27 13:13 | W.PN.UPDATE ---
Update Note
Progress Note Update
Updated daughters
Kay [phone]
Sara
== END 2023-10-27 11:55 | disposition home or self-care (01) | DRG 78 ==
LOC: 3 WEST ACU 18:35
PROVIDERS: Emergency Medicine; Physician Assistant; Specialist; ADMITTING PHYSICIAN Internal Medicine; CONSULT PHYSICIAN Internal Medicine; EMERGENCY PHYSICIAN Emergency Medicine; FAMILY PHYSICIAN Internal Medicine
DX: I67.4 Hypertensive encephalopathy (principal); E22.2 Syndrome of inappropriate secretion of antidiuretic hormone; S32.512A Fracture of superior rim of left pubis, initial encounter for closed fracture; E87.6 Hypokalemia; I34.0 Nonrheumatic mitral (valve) insufficiency; W19.XXXA Unspecified fall, initial encounter; I10 Essential (primary) hypertension; I16.0 Hypertensive urgency
CPT/HCPCS: 70450; 72170; 80048; 80053; 80061; 81003; 81015; 83880; 83930; 83935; 84295; 84300; 84443; 84484; 84550; 85025; 85027; 87086; 93005; 93306; 97116; 97162; 97166; 97535; 99285

== ENCOUNTER 2024-08-25 10:57 | Emergency (ER) | payer OTHER, SELFPAY ==
[2024-08-25 11:07] VITALS: BP 217/103
--- NOTE | 2024-08-25 11:30 | EDRN ---
Pt states she arrives post calling the doctor as she has been spitting up and vomiting, started at 8:00 am when awoke. Pt states she burps and vomits hardly anything as has not eaten since ace 15:00 yesterday. No abd pain as well.
[2024-08-25 11:32] VITALS: BMI 20.7
[2024-08-25 11:48] LABS: % Basophils 0.7 % (0-2); % Immature Granulocytes 0.2 % (0-0.5); % Lymphocytes 17.1 % (20.5-51.1); % Monocytes 15.1 % (1.7-9.3); % Neutrophils 66.9 % (42.2-75.2); Absolute Lymphocytes 0.8 10^3/uL (1.2-3.4); Absolute Monocytes 0.7 10^3/uL (0.1-0.6); Hematocrit 37.4 % (37.0-47.0); Hemoglobin 12.9 g/dL (12.0-16.0); Mean Corp Hgb Conc. 34.5 g/dL (33.0-37.0); Mean Corpuscular Hgb 33.2 pg (27.0-31.0); Mean Corpuscular Volume 96.4 fL (81.0-99.0); Mean Platelet Volume 9.2 fL (7.4-10.4); Nucleated Red Blood Cells % 0 %; Platelet Count 183 10^3/uL (130-400); Red Blood Cell Count 3.88 10^6/uL (4.20-5.40); Red Cell Dist. Width 12.5 % (11.5-14.5); White Blood Cell Count 4.4 10^3/uL (4.8-10.8)
--- NOTE | 2024-08-25 12:02 | ED.GENMED ---
History of Present Illness
General
Chief Complaint: Abdominal Symptoms
Source: patient
Exam Limitations: none
Time Seen by Provider: 08/25/24 11:21
Nursing documentation reviewed up to this point in time: agreed with
History of Present Illness
History of Present Illness:
78-year-old female with history of migraines, HTN states she woke 8 a.m. with headache which has completely resolved. She is here because after burping 4-5 times, she tasted bile in her mouth and throat. No significant vomiting. Last episode was
about an hour ago. Denies nausea, each episode of vomiting was preceded by a burp.
Past History
Past History
ED Past Medical History: HTN and Other (Migraines)
Social History
Tobacco: Non-smoker
Alcohol: Occasional
Personal:
Living: with family
Review of Systems
Review of Systems
Allergies reviewed?: Yes
All Other Systems: ROS reviewed and negative except as documented in HPI and ROS
Constitutional: Denies fever
EENT: Denies sore throat
Respiratory: Denies trouble breathing
Cardiac: Denies chest pain
ABD/GI: Reports vomiting (States she vomited 4 times, each episode preceded by a large burp.); Denies abdominal pain, nausea, bloody stools or black stools
: Denies dysuria, frequency or difficulty voiding
Musculoskeletal: Reports no symptoms
Skin: Reports no symptoms
Neurological: Reports no symptoms; Denies headache
Phy Exam
Physical Exam
Physical Exam:
GENERAL: No acute distress. A&Ox3.
CONSTITUTIONAL: Afebrile.
EYES: clear, conjunctivae normal
ENMT: moist mucus membranes, Pharynx nl
RESPIRATORY: Regular respirations, nonlabored, lungs clear.
CARDIOVASCULAR: Regular rate and rhythm, no murmurs, no rubs.
GI: Soft, nontender, normal BS
MUSCULOSKELETAL: Moves with ease. Well perfused.
SKIN: Warm, dry, pink
PSYCH: Normal mood and affect. Well kept, interactive and appropriate
NEUROLOGIC: Awake, alert and oriented. No focal neurological deficits
Course
Orders/Labs/Results
Orders:
Orders
08/25/24 11:15
IV Insert/Care/Rem.- Treatment PRN
08/25/24 11:41
Complete Blood Count/With Diff Urgent
Comprehensive Metabolic Panel Urgent
Lipase Urgent
Abnormal Lab Results
08/25/24
11:41
WBC 4.4 L 10^3/uL
(4.8-10.8)
RBC 3.88 L 10^6/uL
(4.20-5.40)
MCH 33.2 H pg
(27.0-31.0)
Absolute Lymphs (auto) 0.8 L 10^3/uL
(1.2-3.4)
Absolute Monos (auto) 0.7 H 10^3/uL
(0.1-0.6)
Lymphocytes % 17.1 L %
(20.5-51.1)
Monocytes % 15.1 H %
(1.7-9.3)
Sodium 125 L mmol/L
(135-145)
Chloride 91 L mmol/L
(98-107)
Glucose 108 H mg/dl
(70-99)
08/25/24 11:41
08/25/24 11:41
Vital Signs
Initial and Last Documented VS:
Initial Vital Signs
Temp Pulse Resp Pulse Ox
99.2 F 74 18 97
08/25/24 11:04 08/25/24 11:04 08/25/24 11:04 08/25/24 11:04
Last Documented Vital Signs
Temp Pulse Resp BP Pulse Ox
99.2 F 66 16 190/103 99
08/25/24 11:04 08/25/24 13:13 08/25/24 13:13 08/25/24 13:13 08/25/24 13:13
MDM/Problems Addressed
MDM/Problems Addressed:
78-year-old female with history of migraines, HTN states she woke 8 a.m. with headache which has completely resolved. She is here because after burping 4-5 times, she tasted bile in her mouth and throat. No significant vomiting. Last episode was
about an hour ago. Denies nausea, each episode of vomiting was preceded by a burp.
CBC with no clinically significant abnormality
CMP sodium 125, patient is chronically hyponatremic otherwise normal
Lipase within normal limits
12:40 PM:
CBC unremarkable
CMP, sodium 125, consistent with her chronic hyponatremia
Patient has had no further burping, regurgitation
Recommend OTC antacid Pepcid or Omeprazole
F/U with PCP if symptoms continue
No relation of her initial headache to the GI symptoms
Case discussed with Dr. Wu who agrees patient is stable for discharge, she should follow-up with her PCP within the next week to discuss hyponatremia
Patient BP 150/101 noted, she had not taken her blood pressure medications for the day so she took them she will recheck blood pressure at home
*Critical Care Note
Total Time (30-74mins, 75-104mins- exclusive of procedures): Not Applicable
ED Attending Note
-
Portions of this chart may have been created with voice recognition software.� Occasional wrong word or��sound alike� substitutions may have occurred due to the inherent limitations of voice recognition software.
Discharge Plan
Departure
Patient Disposition: Home (Routine Discharge)
Date of Disposition: 08/25/24
Time of Disposition: 12:50
Patient with high blood pressure during this ER visit?: Yes
Condition: Good
Discharge Problem:
Chronic hyponatremia, GERD (gastroesophageal reflux disease)
Instructions: Acid reflux and GERD in adults, BLOOD PRESSURE
Prescriptions:
No Action
metoprolol succinate 100 mg Tablet Extended Release 24 Hr
100 mg PO QPM
nifedipine 60 mg tablet extended release
60 mg PO DAILY Qty: 30 0RF
aspirin 81 mg tablet,chewable
81 mg PO DAILY Qty: 30 0RF
Referrals:
Destini Byers MD [Family Provider] - Call in 1-3 days for appt
Activity Restrictions/Additional Instructions:
As we discussed, call your primary doctor's office Tuesday morning and make a follow-up appointment to discuss your sodium
You may try aaii-dhb-hdqyymo Pepcid or omeprazole if your burping and regurgitation continues, and discussed the symptoms with your primary doctor.
Your blood pressure was a little high at 158/101 but you just took your medications so that should improve.
Interventions
Interventions:
*Risk Screen - Suicide Last Done: 08/25/24 11:33
*General Assessment Last Done: 08/25/24 11:33
*Neglect/Abuse Screening Last Done: 08/25/24 11:33
ED- Fall Risk Assessment Last Done: 08/25/24 11:33
*ED COVID-19 Vaccine History Last Done: 08/25/24 11:33
*Nursing Disposition Last Done: 08/25/24 13:14
NW-Gujohd-Ngbihsyvjk Assessment Last Done: 08/25/24 11:46
Discharge Date and Time
Discharge Date/Time: 08/25/24 13:15
Print Language: LATVIAN
[2024-08-25 12:10] LABS: ALT (SGPT) 25 U/L (0-35); AST (SGOT) 34 U/L (14-36); Albumin 4.3 g/dl (3.5-5.0); Alkaline Phosphatase 100 U/L (38-126); Blood Urea Nitrogen 10 mg/dl (7-17); Calcium 8.8 mg/dl (8.4-10.2); Carbon Dioxide 24 mmol/L (22-30); Chloride 91 mmol/L (98-107); Estimated Creatinine Clearance 44 ml/min; Glucose 108 mg/dl (70-99); Lipase 208 U/L (23-300); Potassium 4.1 mmol/L (3.5-5.1); Sodium 125 mmol/L (135-145); Total Bilirubin 0.4 mg/dl (0.2-1.3); Total Protein 7.3 g/dl (6.3-8.2); eGFR > 60.00
[2024-08-25 12:18] VITALS: BP 158/101
--- NOTE | 2024-08-25 12:19 | EDRN ---
Pt has been drinking musa jacob w/out nausea of vomiting anything.
[2024-08-25 13:13] VITALS: BP 190/103
--- NOTE | 2024-08-25 13:14 | EDRN ---
Pt just took her BP med prior to last BP reading.
== END 2024-08-25 13:15 | disposition home or self-care (01) ==
LOC: EMR 10:57
PROVIDERS: EMERGENCY PHYSICIAN Emergency Medicine; FAMILY PHYSICIAN Family Medicine
DX: E87.1 Hypo-osmolality and hyponatremia (principal); K21.9 Gastro-esophageal reflux disease without esophagitis; I10 Essential (primary) hypertension
CPT/HCPCS: 99283; 80053; 83690; 85025

== ENCOUNTER → 2024-09-27 09:43 | Outpatient (REF) | payer OTHER, SELFPAY | LOC: RCS 09:43 | PROVIDERS: ATTENDING PHYSICIAN Internal Medicine Cardiovascular Disease; FAMILY PHYSICIAN Family Medicine | DX: R07.89 Other chest pain (principal) | CPT/HCPCS: 93017 ==

== ENCOUNTER 2024-10-30 10:06 | Emergency (ER) | payer OTHER, SELFPAY ==
[2024-10-30 10:13] VITALS: BP 199/138
[2024-10-30 10:34] VITALS: BMI 22.5
--- NOTE | 2024-10-30 10:42 | ED.GENMED ---
History of Present Illness
General
Chief Complaint: Abdominal Symptoms
Source: patient
Time Seen by Provider: 10/30/24 10:19
History of Present Illness
History of Present Illness:
78-year-old female with past medical history of hypertension and migraines presenting to the emergency department after awakening this morning, went downstairs to make herself off, became nauseous and then vomited. Patient states yesterday she had
nausea all morning which resolved late morning to the early afternoon and then was better for the the day. Patient contacted her family doctor who recommended she come to the emergency department to be further evaluated because she has had issues
with sodium in the past. Currently patient reports she is asymptomatic including denying any abdominal pain, headache, fevers, chills, rigors, bowel changes or urinary symptoms. Patient denies any alcohol use.
Past History
Past History
ED Past Medical History: HTN and Other (Migraines)
ED Past Surgical History: None
Social History
Tobacco: Non-smoker
Alcohol: Occasional
Drug: None
Personal:
Living: with family
Review of Systems
Review of Systems
All Other Systems: ROS reviewed and negative except as documented in HPI and ROS
Phy Exam
Physical Exam
Physical Exam:
GENERAL: Alert , in no apparent distress
VITAL SIGNS: BP from triage noted
HEAD: NCAT
EYE: clear conjunctiva
NECK: Supple
ENT: o/p clr, mmm.
CARDIAC: Regular rate and rhythm, no murmur .
LUNGS: Clear breath sounds bilaterally, no acute respiratory distress, no wheezes/rales/rhonchi
ABDOMEN: Soft, without focal tenderness, no r/g, no cvat
NEUROLOGICAL: Alert and oriented
SKIN: Warm and dry, skin intact.
MUSCULOSKELETAL: No edema, well perfused.
PSYCH: Normal and appropriate interaction.
Scores
Heart Failure Risk
Heart Failure Risk Score: Not Applicable
Heart Score for Chest Pain Patients
STEMI patient?: Not applicable
Withdrawal Assessment of Alcohol
Withdrawal Assessment Completed?: Not applicable
Course
Orders/Labs/Results
Orders:
Orders
10/30/24 10:20
Electrocardiogram (*1) Urgent
Reason for Study: Hypertension, Benign
EKG- Treatment ONCE
10/30/24 10:41
Complete Blood Count/With Diff Urgent
Comprehensive Metabolic Panel Urgent
Serum Osmolality Urgent
Troponin I Urgent
Urine Sodium Urgent
Date Specimen was Collected: 10/30/24
Time Specimen was Collected: 10:25
10/30/24 11:27
NIFEdipine EXTENDED RELEASE [Procardia Xl (Extended Release)] 60 mg PO NOW STA
10/30/24 11:30
Metoprolol Xl [Toprol Xl] 100 mg PO NOW STA
Abnormal Lab Results
10/30/24
10:41
MCH 32.6 H pg
(27.0-31.0)
Absolute Monos (auto) 1.0 H 10^3/uL
(0.1-0.6)
Lymphocytes % 17.8 L %
(20.5-51.1)
Monocytes % 11.5 H %
(1.7-9.3)
Sodium 129 L mmol/L
(135-145)
Chloride 96 L mmol/L
(98-107)
Glucose 144 H mg/dl
(70-99)
Serum Osmolality 265 L mOsm/kg
(275-300)
Urine Sodium 131 H mmol/L
(30-90)
10/30/24 10:41
10/30/24 10:41
Vital Signs
Initial and Last Documented VS:
Initial Vital Signs
Temp Pulse Resp BP Pulse Ox
98.3 F 87 20 199/138 96
10/30/24 10:13 10/30/24 10:13 10/30/24 10:13 10/30/24 10:13 10/30/24 10:13
Last Documented Vital Signs
Temp Pulse Resp BP Pulse Ox
98.3 F 81 20 210/105 94
10/30/24 10:13 10/30/24 11:39 10/30/24 10:13 10/30/24 12:00 10/30/24 12:15
MDM/Problems Addressed
Differential Diagnosis Includes:
GERD/gastritis, gastroenteritis, hypertensive urgency, electrolyte disturbance
MDM/Problems Addressed:
78-year-old female with past medical history of hypertension and migraines presenting to the ER for evaluation of nausea that occurred yesterday but resolved, this morning also had nausea and vomited once but currently asymptomatic. Found to be
profoundly hypertensive in triage which patient reports is only due to anxiety. She does note she was unable to take her usual medications this morning due to her nausea. She is without any other symptoms but concern for electrolyte disturbance.
Will check labs and I did add on an EKG and troponin due to patient's elevated blood pressure. Disposition pending.
Chronic conditions affecting care: HTN
Acute Exacerbation and/or Progression of Chronic Illness: HTN
*Pulse Oximetry
Patient hypoxic: no
*Manufacturing Finance Manager Interpretation
Rate: normal
Rhythm: sinus
*Critical Care Note
Total Time (30-74mins, 75-104mins- exclusive of procedures): Not Applicable
Data Reviewed
Review of Other/Old Records Reveals: Labs, Records and Discharge Summary
Patient Management
Discussion with other providers: PCP
Escalation/DeEscalation of care consider admission/obs:
Patient's workup is largely unremarkable and appears to be all chronic findings. I notified primary care provider and reviewed workup including patient's persistent hypertension. This is a chronic issue for the patient and has been on multiple
medications for this and has been difficult to control. Patient also follows with nephrology for this. Patient states that she was also supposed to be on clonidine but due to some type of issue she had stopped taking this a couple of days ago.
Primary care believes patient should still be on clonidine however states that the pharmacy told her that this was never refilled. Primary care states patient is on 0.1 mg clonidine daily. I strongly encourage patient to follow-up with primary
care provider as she will likely need continued care and potential modification of her antihypertensive regimen. Patient and family expressed understanding. Stable for discharge home
ED Attending Note
-
Portions of this chart may have been created with voice recognition software.� Occasional wrong word or��sound alike� substitutions may have occurred due to the inherent limitations of voice recognition software.
Discharge Plan
Departure
Patient Disposition: Home (Routine Discharge)
Date of Disposition: 10/30/24
Time of Disposition: 12:41
Patient with high blood pressure during this ER visit?: Yes
Discharge Problem:
Vomiting, Hypertension
Instructions: High blood pressure - ED discharge instructions
Prescriptions:
No Action
metoprolol succinate 100 mg Tablet Extended Release 24 Hr
100 mg PO QPM
nifedipine 60 mg tablet extended release
60 mg PO DAILY Qty: 30 0RF
aspirin 81 mg tablet,chewable
81 mg PO DAILY Qty: 30 0RF
Referrals:
Destini Byers MD [Family Provider] -
Interventions
Interventions:
*Risk Screen - Suicide Last Done: 10/30/24 10:13
*General Assessment Last Done: 10/30/24 10:13
*Neglect/Abuse Screening Last Done: 10/30/24 10:34
*ED- Fall Risk Assessment Last Done: 10/30/24 10:34
*ED COVID-19 Vaccine History Last Done: 10/30/24 10:34
*Nursing Disposition Last Done: 10/30/24 12:47
RS-Etqycx-Uznddsfkva Assessment Last Done: 10/30/24 10:34
Discharge Date and Time
Discharge Date/Time: 10/30/24 12:48
Print Language: CITIZEN OF [place]
[2024-10-30 10:47] VITALS: BP 211/128
[2024-10-30 11:00] VITALS: BP 199/108
[2024-10-30 11:07] LABS: % Basophils 0.8 % (0-2); % Eosinophils 2.2 % (0-6); % Immature Granulocytes 0.4 % (0-0.5); % Lymphocytes 17.8 % (20.5-51.1); % Monocytes 11.5 % (1.7-9.3); % Neutrophils 67.3 % (42.2-75.2); Absolute Basophils 0.1 10^3/uL (0-0.2); Absolute Eosinophils 0.2 10^3/uL (0-0.7); Absolute Lymphocytes 1.5 10^3/uL (1.2-3.4); Absolute Neutrophils 5.6 10^3/uL (1.4-6.5); Hematocrit 41.6 % (37.0-47.0); Hemoglobin 14.2 g/dL (12.0-16.0); Mean Corp Hgb Conc. 34.1 g/dL (33.0-37.0); Mean Corpuscular Hgb 32.6 pg (27.0-31.0); Mean Corpuscular Volume 95.4 fL (81.0-99.0); Nucleated Red Blood Cells % 0 %; Platelet Count 276 10^3/uL (130-400); Red Blood Cell Count 4.36 10^6/uL (4.20-5.40); Red Cell Dist. Width 12.9 % (11.5-14.5); White Blood Cell Count 8.4 10^3/uL (4.8-10.8)
[2024-10-30 11:17] LABS: ALT (SGPT) 30 U/L (0-35); AST (SGOT) 32 U/L (14-36); Albumin 4.9 g/dl (3.5-5.0); Alkaline Phosphatase 77 U/L (38-126); Blood Urea Nitrogen 11 mg/dl (7-17); Calcium 9.9 mg/dl (8.4-10.2); Carbon Dioxide 23 mmol/L (22-30); Chloride 96 mmol/L (98-107); Estimated Creatinine Clearance 44 ml/min; Glucose 144 mg/dl (70-99); Potassium 4.6 mmol/L (3.5-5.1); Sodium 129 mmol/L (135-145); Total Bilirubin 0.9 mg/dl (0.2-1.3); eGFR > 60.00
[2024-10-30 11:29] LABS: Troponin I < 0.012 ng/ml
[2024-10-30 11:37] LABS: Urine Sodium 131 mmol/L (30-90)
[2024-10-30] MEDS: TOPROL XL 100 MG PO (11:39)
[2024-10-30] MEDS: PROCARDIA XL (EXTENDED RELEASE) 60 MG PO (11:39)
[2024-10-30 12:00] VITALS: BP 210/105
[2024-10-30 12:28] LABS: Osmolality Serum 265 mOsm/kg (275-300)
== END 2024-10-30 12:48 | disposition home or self-care (01) ==
LOC: EMR 10:06
PROVIDERS: Physician Assistant Medical; EMERGENCY PHYSICIAN Emergency Medicine; FAMILY PHYSICIAN Family Medicine
DX: R11.2 Nausea with vomiting, unspecified (principal); I10 Essential (primary) hypertension
CPT/HCPCS: 99284; 80053; 83930; 84300; 84484; 85025; 93005